=== PATIENT | male | born 1965 | race Caucasian/White ===

== ENCOUNTER 2019-09-15 21:48 | Emergency (ER) | payer OTHER ==
[~2019-09-15] VITALS: Ht 152.4 cm; Wt 97.5 kg
[2019-09-15] MEDS ORDERED: AUGMENTIN 875-125 TABLET PO STA (22:01)
--- NOTE | 2019-09-15 22:07 | NUR ---
[facility] ANIMAL CONTROL CALLED TO BE NOTIFIED. TALKED WITH JOVANNY BLANCO AND VENESSA OCONNELL. STATES WILL CALL BACK WITH MORE INFO.
--- NOTE | 2019-09-15 22:08 | ER.PDOC ---
General Chief Complaint: Requesting Medical Care Stated Complaint: DOG BITE Time seen by MD: 21:55 Source: patient Exam Limitations: no limitations History of Present Illness Initial Comments patient involved in unprovoked attack by 2 rotweiler dogs today; the dogs are known and contained, have had vaccinations and are scheduled to be put down tomorrow Onset: this afternoon Where: home Animal: dog (2 rotweilers) Animal Appearance: appeared well Animal Immunizations: UTD Animal Disposition: Animal Known, Animal Captured, Can Be Observed (are scheduled to be put down tomorrow) Context of Attack: "unprovoked" attack Severity of Injury: bitten Injury Location: lower extremity (both) Review of Systems Constitutional: no symptoms reported Eyes: no symptoms reported Ears: no symptoms reported Nose: no symptoms reported Mouth: no symptoms reported Throat: no symptoms reported Respiratory: no symptoms reported Cardiovascular: no symptoms reported Gastrointestinal: no symptoms reported Skin: see HPI (dog bites left thigh, right knee, right calf) Physical Exam General Appearance: alert, no distress Skin: see diagram Neuro/Vascular/Tendon: no vascular compromise Psych: mood/affect nml HEENT: atraumatic Neck: uninjured Resp/CVS: chest non-tender, breath sounds nml, heart sounds nml, reg. rate & rhythm Abdomen: nml inspection Back: nml inspection Extremities: see diagram 1 - bite wound with hematoma 2 - bite wound 3 - bite wound Results/Orders Results/Orders Orders - TIERRA BENÍTEZ DO Tetanus-Diphtheria Toxoids/Pf (Tenivac S (09/15/19 22:30) Amoxicillin/Potassium Clav (Augmentin 87 (09/15/19 22:01) Xr Femur Lt (09/15/19 22:01) Xr Knee Rt 2v (09/15/19 22:01) Xr Tib/Fib Rt (09/15/19 22:01) Amoxicillin/Potassium Clav (Augmentin 87 (09/15/19 22:22) Vital Signs Date Time Temp Pulse Resp B/P (MAP) Pulse Ox O2 Delivery O2 Flow Rate FiO2 09/15/19 22:20 98.7 80 18 115/84 (94) 96 Room Air 09/15/19 22:10 98.7 80 18 96 09/15/19 22:10 98.7 80 18 Administered Medications Medications (Trade) Dose Ordered Sig/Elbert Route PRN Reason Start Time Stop Time Status Last Admin Dose Admin Amoxicillin/ Clavulanate Potassium (Augmentin 875-125 Tablet) 1 each STAT STAT PO 09/15/19 22:01 09/15/19 22:05 DC 09/15/19 22:27 1 EACH EKG/XRAY/CT/US XRAY Comments: no FB seen; no fx Departure Time of Disposition: 23:09 Disposition: 01 HOME, SELF-CARE Impression: Primary Impression: Dog bite of extremity Additional Impression: Hematoma and contusion Condition: Stable Patient Instructions: Animal Bite, Hematoma Referrals: PCP,UNKNOWN (PCP) PRIMARY CARE PROVIDER Additional Instructions: apply ice to areas of pain/swelling; take antibiotics until all gone; return to ER if you develop any evidence of infection; alternate tylenol and motrin as directed for pain (every 4 hours) Duration or Time Spent with Pa: 20 min Problem Qualifiers TIERRA BENÍTEZ DO Sep 15, 2019 22:08
[2019-09-15 22:10] VITALS: BP 115/84
[2019-09-15 22:20] VITALS: BP 115/84
--- NOTE | 2019-09-15 22:20 | NUR ---
RAD LEN, RAD IN PT ROOM WITH PORTABLE AT THIS TIME.
[2019-09-15] MEDS ORDERED: AUGMENTIN 875-125 TABLET ONE (22:22)
--- NOTE | 2019-09-15 22:22 | NUR ---
ANIMAL CONTROL VENESSA CO CALLED AND STATED WILL SEND DEPUTY OUT TO TAKE REPORT.
[2019-09-15] MEDS ORDERED: TENIVAC SYRINGE IM ONE (22:30)
--- NOTE | 2019-09-15 22:34 | NUR ---
VENESSA HEARN DEPUTY IN PT ROOM TO TAKE REPORT AT THIS TIME.
--- NOTE | 2019-09-15 22:52 | DIREP ---
PROCEDURE:XRAY TIB & FIB 2 VW-RT COMPARISON:None. INDICATIONS:foreign body FINDINGS: BONES:Normal. JOINTS:Normal. SOFT TISSUES:Normal. OTHER:No additional findings. CONCLUSION:No acute findings. Dictated by: Jay Villafana MD on 09/15/2019 at 10:44 PM
--- NOTE | 2019-09-15 22:54 | DIREP ---
PROCEDURE:XRAY KNEE 2 VWS-RT COMPARISON:None. INDICATIONS:foreign body FINDINGS: BONES:Normal. JOINTS:Normal. SOFT TISSUES:Normal. OTHER:No additional findings. CONCLUSION:Limited by poor positioning on the AP view. No definite foreign body. No definite acute fracture. Dictated by: Jay Villafana MD on 09/15/2019 at 10:51 PM
--- NOTE | 2019-09-15 22:55 | DIREP ---
PROCEDURE:XRAY FEMUR 2 VWS-LT COMPARISON:None. INDICATIONS:foreign body FINDINGS: BONES:Normal. JOINTS:Normal. SOFT TISSUES:Normal. OTHER:No additional findings. CONCLUSION:No acute bony findings. Dictated by: Jay Villafana MD on 09/15/2019 at 10:53 PM
== END 2019-09-15 23:26 | disposition home or self-care (01) ==
LOC: ER 21:48
DX: S81.051A Open bite, right knee, initial encounter (principal); S81.851A Open bite, right lower leg, initial encounter; W54.0XXA Bitten by dog, initial encounter; Y93.89 Activity, other specified; Y92.098 Other place in other non-institutional residence as the place of occurrence of the external cause; Y99.8 Other external cause status
CPT/HCPCS: 73552; 73560; 90471; 90714; 99284; 73550-LT; 73590-RT

== ENCOUNTER 2021-01-10 15:45 | Observation (INO) | payer OTHER, MEDICARE ==
[~2021-01-10] VITALS: Ht 152.4 cm; Wt 102.1 kg
--- NOTE | 2021-01-10 15:54 | NUR ---
ARRIVAL PT AMBULATED TO ED 8 C/O 9MM STONE IN RIGHT URETER, WAS SEEN IN [place] AND HAD SCAN, HERE TO F/U ON STONE, UA OBTAINED
[2021-01-10 16:21] VITALS: BP 117/78
--- NOTE | 2021-01-10 16:39 | ER.PDOC ---
General Chief Complaint: RIGHT FLANK PAIN Stated Complaint: KIDNEY STONE Time seen by MD: 16:37 Source: patient Exam Limitations: no limitations History of Present Illness Initial Comments Right flank pain for 1 week. Patient was seen in an ER in [place] and he has a 9 mm ureteral calculus on the right side. He was advised admission but he refused and came here. Timing/Duration: 1 week Severity/Quality: moderate Radiation: RLQ Associated Symptoms: denies symptoms Exacerbated by: nothing Relieved By: nothing Allergies: Coded Allergies: No Known Allergies (Unverified , 01/10/21) Vital Signs First Vital Signs Date Time Temp Pulse Resp B/P (MAP) Pulse Ox O2 Delivery O2 Flow Rate FiO2 01/10/21 16:21 98.7 75 18 117/78 (91) 96 Room Air Last Vital Signs Date Time Temp Pulse Resp B/P (MAP) Pulse Ox O2 Delivery O2 Flow Rate FiO2 01/10/21 18:16 98.7 61 18 117/78 (91) 91 Room Air Past Medical History Medical History: cancer Surgical History: cancer surgery, knee, tonsillectomy Family History Significant Family History: no pertinent family hx Social History Alcohol Use: none Drug Use: none Constitutional: no symptoms reported EENTM: no symptoms reported Respiratory: no symptoms reported Cardiovascular: no symptoms reported Gastrointestinal: see HPI Genitourinary: see HPI All Other Systems: Reviewed and Negative Physical Exam General Appearance: No Apparent Distress, WD/WN Neck: Non-Tender, Full Range of Motion, Supple, Normal Inspection Respiratory: chest non-tender, lungs clear, normal breath sounds, no respiratory distress, no accessory muscle use Cardiovascular: Normal Peripheral Pulses, Regular Rate, Rhythm, No Edema, No Gallop, No JVD, No Murmur Gastrointestinal: Normal Bowel Sounds, Non Tender, Soft, Other (obese) Back: CVA Tenderness (R) Extremities: Normal Range of Motion, Non-Tender, Normal Inspection, No Pedal Edema, No Calf Tenderness, Normal Capillary Refill, Pelvis Stable Neurologic/Psychiatric: christmas tree grader II-XII NML as Tested, No Motor/Sensory Deficits, Alert, Normal Mood/Affect, Oriented x 3 Skin: Normal Color, Warm/Dry Lymphatic: No Adenopathy Results/Orders Results/Orders Orders - CATHIE VALLEJO MD Cbc With Auto Diff (01/10/21 16:35) Comprehensive Metabolic Panel (01/10/21 16:35) PT (01/10/21 16:35) Partial Thromboplastin Time. (01/10/21 16:35) Urinalysis (01/10/21 16:35) Ct Abd/Pelvis Wo Iv Contrast (01/10/21 16:35) Vital Signs Date Time Temp Pulse Resp B/P (MAP) Pulse Ox O2 Delivery O2 Flow Rate FiO2 01/10/21 18:16 98.7 61 18 117/78 (91) 91 Room Air 01/10/21 17:08 98.7 69 18 117/78 (91) 95 Room Air 01/10/21 16:21 98.7 75 18 01/10/21 16:21 98.7 75 18 96 01/10/21 16:21 98.7 75 18 117/78 (91) 96 Room Air Laboratory Tests Test 01/10/21 16:41 White Blood Count 5.9 10^3/uL (4.5-11.0) Red Blood Count 4.38 10^6/uL (4.50-5.90) L Hemoglobin 13.1 g/dL (13.9-16.3) L Hematocrit 39.5 % (37.0-53.0) Mean Corpuscular Volume 90.2 fL (78-100) Mean Corpuscular Hemoglobin 29.9 pg (26-34) Mean Corpuscular Hemoglobin Concent 33.2 g/dL (33-36.5) Red Cell Distribution Width 14.4 % (11.5-14.5) Platelet Count 193 10^3/uL (150-400) Mean Platelet Volume 10.1 fL (7.8-11.0) Neutrophils (%) (Auto) 64.7 % (41.0-85.0) Lymphocytes (%) (Auto) 25.3 % (24.0-44.0) Monocytes (%) (Auto) 5.4 % (5.0-12.0) Neutrophils # (Auto) 3.8 10^3/uL (1.8-7.7) Lymphocytes # (Auto) 1.49 10^3/uL1 (1.0-4.8) Monocytes # (Auto) 0.3 10^3/uL (0.3-0.8) Absolute Immature Granulocyte (auto 0.03 10^3 u/L (0-2) Absolute Eosinophils (auto) 0.2 10^3/uL (0.0-0.2) Immature Granulocytes % 0.50 % (0.00-0.50) Eosinophils % 3.1 % (0.0-5.0) Basophils % 1.0 % (0.0-0.2) H Basophils # 0.1 10^3/uL (0.0-0.1) Prothrombin Time 11.6 SEC (9.6-12.0) Prothrombin Time INR (Non-Therap) 1.1 Activated Partial Thromboplast Time 25.6 SEC (24.67-30.72) Urine Collection Type RANDOM Urine Color RED Urine Appearance CLOUDY Urine Bilirubin NEGATIVE (NEGATIVE) Urine Ketones NEGATIVE (NEGATIVE) Urine Specific [place] 1.020 (1.005-1.030) Urine pH 5.5 (4.5-8.0) Urine Protein 100 mg/dL (NEGATIVE) H Urine Urobilinogen 0.2 E.U./dL (0.2) Urine Nitrate NEGATIVE (NEGATIVE) Urine Leukocyte Esterase NEGATIVE (NEGATIVE) Urine Glucose (Auto)(UA) NEGATIVE (NEGATIVE) Urine Blood LARGE (NEGATIVE) H Urine RBC TNTC RBC/HPF (NONE SEEN) H Urine WBC 0-2 WBC/HPF (0-2) Urine Squamous Epithelial Cells FEW #/HPF (FEW) Urine Bacteria NONE SEEN (NONE SEEN) Sodium Level 138 mmol/L (132-145) Potassium Level 3.2 mmol/L (3.6-5.2) L Chloride Level 100.0 mmol/L (96-109) Carbon Dioxide Level 29.8 mmol/L (20.0-32) Anion Gap 11.4 Blood Urea Nitrogen 18 mg/dL (7-18) Creatinine 1.89 mg/dL (0.59-1.40) H Estimated GFR () 44.9 (>/=60) Est GFR (CKD-EPI)(Non-Afr [place]) 37.1 (>/=60) BUN/Creatinine Ratio 9.0 Glucose Level 168 mg/dL (70-110) H Calcium Level 8.5 mg/dL (8.4-10.5) Total Bilirubin 0.5 mg/dL (0.2-1.0) Aspartate Amino Transferase (AST) 54 U/L (0-35) H Alanine Aminotransferase (ALT) 47 U/L (12-78) Alkaline Phosphatase 53 U/L (50-136) Total Protein 7.2 g/dL (6.4-8.2) Albumin 4.0 g/dL (3.4-5.0) Globulin 3.2 Albumin/Globulin Ratio 1.[address] abdomen/pelvis: Moderate hepatic steatosis. 2. 9 x 7 mm nonobstructing calculus in the right distal ureter. 3. Mild sigmoid diverticulosis. 4. Small pericardial effusion. ER DEPART Departure Time of Disposition: 18:30 Disposition: 01 HOME / SELF CARE / HOMELESS Impression: Primary Impression: Ureteral calculus, right Additional Impression: ASHLEY (acute kidney injury) Condition: Stable Referrals: PCP,UNKNOWN (PCP) PRIMARY CARE PROVIDER Comments Admitted to Dr. Hernández, spoke with Dr. Gaspar who will consult Duration or Time Spent with Pa: 60 min Problem Qualifiers CATHIE VALLEJO MD Jan 10, 2021 16:39
[2021-01-10 16:46] LABS: BILIRUBIN,URINE NEGATIVE (NEGATIVE); UA COLOR RED; UROBILINOGEN,URINE 0.2 E.U./dL (0.2)
[2021-01-10 16:47] LABS: BASOPHIL # 0.1 10^3/uL (0.0-0.1); EOSINOPHIL # 0.2 10^3/uL (0.0-0.2); EOSINOPHIL % 3.1 % (0.0-5.0); LYMPHOCYTES # 1.49 10^3/uL1 (1.0-4.8); LYMPHOCYTES % 25.3 % (24.0-44.0); MEAN CORP HGB 29.9 pg (26-34); MONOCYTES # 0.3 10^3/uL (0.3-0.8); MONOCYTES % 5.4 % (5.0-12.0); NEUTROPHIL # 3.8 10^3/uL (1.8-7.7); NEUTROPHILS % 64.7 % (41.0-85.0); PLATELET COUNT 193 10^3/uL (150-400); RED CELL DISTRIBUTION WIDTH 14.4 % (11.5-14.5)
[2021-01-10 17:02] LABS: CALCIUM 8.5 mg/dL (8.4-10.5); CARBON DIOXIDE 29.8 mmol/L (20.0-32)
[2021-01-10 17:08] VITALS: BP 117/78
--- NOTE | 2021-01-10 17:35 | DIREP ---
PROCEDURE:CT ABDOMEN/PELVIS W/O CONTRAST COMPARISON:None. INDICATIONS:Right flank pain TECHNIQUE:Axial images were created through the abdomen and pelvis without intravenous contrast material. No oral contrast was administered. Sagittal and coronal reconstructions were performed from source images. FINDINGS: LUNG BASES:Normal. No visible pulmonary or pleural disease. Small pericardial effusion. LIVER:Diffusely diminished hepatic attenuation consistent with hepatic steatosis. There is focal fatty sparing adjacent to the gallbladder. BILIARY:Normal. No visible dilatation or calcification. PANCREAS:Normal. No lesion, fluid collection, ductal dilatation, or atrophy. SPLEEN:Normal. No enlargement or focal lesion. ADRENALS:Normal. No mass or enlargement. URINARY TRACT:9 x 7 mm nonobstructing calculus in the right distal ureter on image 79 series 2. No hydronephrosis. No additional renal or ureteral calculi. No focal lesions or hydronephrosis. AORTA/VASCULAR:Normal. No aneurysm. RETROPERITONEUM:Normal. No mass or adenopathy. BOWEL/MESENTERY:There is mild colonic diverticulosis without evidence for diverticulitis. There is no intestinal obstruction, free fluid, free air or mesenteric inflammatory changes. Normal appendix. ABDOMINAL WALL:Evidence of prior periumbilical hernia repair with abdominal wall mesh. PELVIC ORGANS:Normal. No visible mass. Pelvic organs appropriate for patient age. BONES:Normal for age. No bony lesion or acute fracture. OTHER:Negative. CONCLUSION: 1. Moderate hepatic steatosis. 2. 9 x 7 mm nonobstructing calculus in the right distal ureter. 3. Mild sigmoid diverticulosis. 4. Small pericardial effusion. Dictated by: Tomi Feliciano MD on 01/10/2021 at 05:14 PM
--- NOTE | 2021-01-10 18:05 | NUR ---
KELLE MORGANA ON THE PHONE WITH DOCTOR NINA AT THIS TIME.
[2021-01-10 18:16] VITALS: BP 117/78
[2021-01-10] MEDS ORDERED: HNS 1000ML/KCL 20MEQ 1,000 ML IV STA (18:31)
[2021-01-10] MEDS ORDERED: ROCEPHIN 1,000 MG in NS 100ML 100 ML IV STA (18:31)
[2021-01-10] MEDS ORDERED: HNS 1000ML/KCL 20MEQ 1,000 ML ONE (18:48)
[2021-01-10] MEDS ORDERED: ROCEPHIN ONE (18:48)
--- NOTE | 2021-01-10 18:57 | NUR ---
IV START 20G RIGHT HAND
[2021-01-10] MEDS ORDERED: DEXTROSE 50%-WATER SYRINGE IV PRN (19:00)
[2021-01-10] MEDS ORDERED: D5W 1000ML 1,000 ML PRN (19:00)
[2021-01-10] MEDS ORDERED: MORPHINE SULFATE IV PRN (19:00)
[2021-01-10] MEDS ORDERED: TYLENOL PO PRN (19:00)
--- NOTE | 2021-01-10 19:13 | PCM.HP ---
History of Present Illness Reason for Visit: Right flank pain History of Present Illness 55-year-old male with history of hypertension, diabetes, kidney stones, among othersPresented to the emergency room withRight flank pain for 1 week. Patient was seen in an ER in [place] and he has a 9 mm ureteral calculus on the right side. He was advised admission but he refused and came here. Work-up in the emergency room including imaging studies patient was found to have 9 mm right distal ureter stone. Patient also was found to have elevated creatinine 1.89.? Acute kidney injury. Denies fever chills nausea or vomiting. ED physician consulted with urologist who advised admit the patient for possible procedure in a.m. Past Medical History Cardiac: HTN, Hyperlipidemia Renal/: Other (Kidney stones) Endocrine: Diabetes Past Surgical History: No pertinent hx Past Social History Smoke: No Alcohol: none Review of Systems Constitutional: No: Fever Eyes: No: Pain, Vision change ENT: No: Ear pain, Ear discharge Respiratory: No: Cough, Dry, Shortness of breath Cardiovascular: No: Chest Pain, Palpitations, Orthopnea Gastrointestinal: No: Nausea, Vomiting Genitourinary: Other (Right flank pain) Musculoskeletal: No: neck pain, shoulder pain Skin: No: Jaundice Neurological: No: Weakness, Numbness Allergies: Coded Allergies: No Known Allergies (Unverified , 01/10/21) Exam Vital Signs Vital Signs Date Time Temp Pulse Resp B/P (MAP) Pulse Ox O2 Delivery O2 Flow Rate FiO2 01/10/21 18:16 98.7 61 18 117/78 (91) 91 Room Air General Appearance: Alert, Oriented X3 HEENT: Atraumatic, PERRLA Respiratory: Clear to auscultation, Normal air movement Cardiovascular: Normal S1, Normal S2 Abdominal: Normal bowel sounds, Soft, No tenderness Extremities: No clubbing, No cyanosis, No edema Skin: No rash, No breakdown Neuro: Normal gait, Normal speech Psych/Mental Status: Mental status NL, Mood NL Assessment/Plan Assessment/Plan Problems: (1) Ureteral calculus, right Status: Acute ICD Code: N20.1 - Calculus of ureter SNOMED: 89413955 (2) ASHLEY (acute kidney injury) Status: Acute ICD Code: N17.9 - Acute kidney failure, unspecified SNOMED: 61679255, 0251508 (3) Diabetes mellitus, type II ICD Code: E11.9 - Type 2 diabetes mellitus without complications SNOMED: 01568675 (4) Hypertension ICD Code: I10 - Essential (primary) hypertension SNOMED: 48223123 (5) Hyperlipidemia ICD Code: E78.5 - Hyperlipidemia, unspecified SNOMED: 29450836 Plan 55-year-old male with history of hypertension, diabetes, kidney stones, among othersPresented to the emergency room withRight flank pain for 1 week. Patient was seen in an ER in [place] and he has a 9 mm ureteral calculus on the right side. He was advised admission but he refused and came here. Work-up in the emergency room including imaging studies patient was found to have 9 mm right distal ureter stone. Patient also was found to have elevated creatinine 1.89.? Acute kidney injury. Denies fever chills nausea or vomiting. ED physician consulted with urologist who advised admit the patient for possible procedure in a.m. Plan Admit Urologist consulted for evaluation and further management N.p.o. after midnight IV fluids Pain management with close monitoring of vital signs and pulse ox SSI Reviewed continue home meds GI and DVT prophylaxis as appropriate Expect length of stay 1 midnight if patient stable and cleared by urologist CLEMENTINA TORRES MD Jan 10, 2021 19:13
[2021-01-10] MEDS ORDERED: KLOR-CON 10 PO SCH (19:30)
[2021-01-10] MEDS ORDERED: ROCEPHIN 1,000 MG in NS 100ML 100 ML IV SCH (19:30)
[2021-01-10 19:49] VITALS: BP 102/62
[2021-01-10] MEDS: NS 1000ML 1,000 ML IV SCH (20:48)
[2021-01-10] MEDS ORDERED: HUMALOG SQ SCH (21:00)
[2021-01-10 21:05] VITALS: BP 127/69
[2021-01-10 22:24] VITALS: BP 118/57
[2021-01-11] VITALS (17 sets, daily range): BP systolic 101–159; BP diastolic 47–101
[2021-01-11] MEDS ORDERED: NS 1000ML 1,000 ML ONE ×2 (03:32→08:07)
[2021-01-11] MEDS: NS 1000ML 1,000 ML IV SCH (03:35)
[2021-01-11 04:40] LABS: BASOPHIL # 0.1 10^3/uL (0.0-0.1); BASOPHIL % 1.3 % (0.0-0.2); EOSINOPHIL # 0.2 10^3/uL (0.0-0.2); EOSINOPHIL % 3.9 % (0.0-5.0); LYMPHOCYTES # 1.23 10^3/uL1 (1.0-4.8); LYMPHOCYTES % 22.8 % (24.0-44.0); MEAN CORP HGB 30.5 pg (26-34); MONOCYTES # 0.3 10^3/uL (0.3-0.8); MONOCYTES % 5.6 % (5.0-12.0); NEUTROPHIL # 3.6 10^3/uL (1.8-7.7); NEUTROPHILS % 66.2 % (41.0-85.0); PLATELET COUNT 161 10^3/uL (150-400); RED CELL DISTRIBUTION WIDTH 14.5 % (11.5-14.5)
--- NOTE | 2021-01-11 07:00 | NUR ---
Kwadwo telles in [facility] - 01/11/21 at 0700 by JOANIE Resting comfortsably.
--- NOTE | 2021-01-11 07:00 | NUR ---
Resting comfortably. No complaints offered. Remains NPO status for surgery this am. VSS. IV right hand without s/s of infiltration. Pending transfer to the floor vs. surgery.
[2021-01-11] MEDS ORDERED: SODIUM CHLORIDE IRR BOTTLE IR ONE (07:26)
[2021-01-11] MEDS ORDERED: NS 3000ML IRR IR ONE (07:26)
[2021-01-11] MEDS ORDERED: ROCURONIUM BROMIDE IV ONE (07:34)
[2021-01-11] MEDS ORDERED: DECADRON ONE (07:34)
[2021-01-11] MEDS ORDERED: LIDOCAINE 2% VIAL ONE (07:34)
[2021-01-11] MEDS ORDERED: TORADOL ONE (07:34)
[2021-01-11] MEDS ORDERED: ZOFRAN ONE (07:34)
[2021-01-11] MEDS ORDERED: SUBLIMAZE ONE (07:35)
[2021-01-11] MEDS ORDERED: QUELICIN ONE (07:35)
[2021-01-11] MEDS ORDERED: DIPRIVAN IV ONE (07:35)
[2021-01-11] MEDS ORDERED: LEVAQUIN 100 ML IV ONE (08:01)
[2021-01-11] MEDS ORDERED: LACTATED RINGERS 1,000 ML ONE (08:01)
[2021-01-11] MEDS ORDERED: TRAM50TA PO (09:05)
[2021-01-11] MEDS ORDERED: CALC1CAP7 PO (09:05)
[2021-01-11] MEDS ORDERED: DOXE10CA PO (09:05)
[2021-01-11] MEDS ORDERED: METF500T17 PO (09:05)
[2021-01-11] MEDS ORDERED: NIAC500C8 PO (09:05)
[2021-01-11] MEDS ORDERED: ALBU8.5H7 IH (09:05)
[2021-01-11] MEDS ORDERED: BUSP5TAB2 PO (09:05)
[2021-01-11] MEDS ORDERED: HYDR25TA9 PO (09:05)
[2021-01-11] MEDS ORDERED: PARO40TA3 PO (09:05)
[2021-01-11] MEDS ORDERED: PROP60CA PO (09:05)
[2021-01-11] MEDS ORDERED: ROSU40TA PO (09:05)
[2021-01-11] MEDS ORDERED: METH-621 PO (09:05)
[2021-01-11] MEDS ORDERED: LEVO137T4 PO (09:05)
[2021-01-11] MEDS ORDERED: GABA800T5 PO (09:05)
[2021-01-11] MEDS ORDERED: LISI40TA10 PO (09:05)
[2021-01-11] MEDS ORDERED: AMLO-170 PO (09:05)
[2021-01-11] MEDS ORDERED: POTA20TA14 PO (09:05)
[2021-01-11] MEDS ORDERED: ALLO100T PO (09:05)
[2021-01-11 09:08] LABS: CARBON DIOXIDE 25.5 mmol/L (20.0-32)
[2021-01-11] MEDS ORDERED: VENTOLIN IH ONE (09:43)
[2021-01-11] MEDS ORDERED: LACTATED RINGERS 1,000 ML IV SCH (10:00)
--- NOTE | 2021-01-11 10:14 | OPH ---
DATE OF SURGERY: 01/11/2021 DICTATOR NAME: Husam Gaspar MD PREOPERATIVE DIAGNOSIS: Large calculus, right distal ureter. FINAL DIAGNOSES: Large calculus, right distal ureter. PROCEDURE PERFORMED: Cystoscopy, retrograde and attempted ureteroscopy with attempted ureteral stent insertion. DESCRIPTION OF PROCEDURE: The patient was brought to the cystoscopy room, was put in supine position on the cystoscopy table. After the patient was given adequate and LMA general anesthesia, the patient was placed in the lithotomy position. The genitalia was then prepped and draped aseptically in the usual manner. First, a 23-[place] cystoscope was inserted per urethra up to the bladder. With the use of the right angle lens, the bladder was visualized. There was a lot of congestion noted in the trigone and also in the bladder wall. There is no tumor, no calculi, and no ulcerations seen. A 7-[place] ureteral catheter was then inserted at the right ureteral orifice and injected with Omnipaque dye and it showed a large calculus in the right distal ureter with some hydroureter. After this was done, the ureteral stent was removed and then a Glidewire with a 6-[place] ureteral stent was then inserted into the bladder and the Glidewire was then tried to insert through the right ureteral orifice; however, because of the stone was completely obstructed, several attempts were done to manipulate around the stone, but the Glidewire would not go through. So at this juncture, I decided to do a possible ureteroscopy. The cystoscope was removed and a 7-[place] Island[place] semirigid ureteroscope was inserted per urethra up to the bladder and was inserted to the right ureteral orifice and the Glidewire was then inserted, but it completely blocked and the Glidewire with a stent would not pass through the stone in the distal right ureter, which is completely impacted and obstructed. So at this time, the ureteroscope was removed. The cystoscope was reinserted in the bladder and the bladder was emptied with fluid. Procedure was terminated. The instrument was removed. So the patient was then awakened, was transferred to the recovery room in stable condition. I will discuss this with the patient and also with the primary hospitalist and I suggested that he should be transferred to the bigger center, may be in [place] for them to be referred to an invasive radiologist to do a transcutaneous nephrostomy with insertion of a stent from the kidney down to the bladder. Husam Gaspar MD DR: REECE TID: [id number] RECEIPT: [id number]
--- NOTE | 2021-01-11 10:30 | DIREP ---
PROCEDURE:XRAY UROGRAPHY RETROGRADE COMPARISON:None. INDICATIONS:RT RENAL CALCULI,8 IMAGES,205.3 SEC FLUORO,123.02 mGy, 10cc OMNI 240 USED FINDINGS: Intraoperative fluoroscopy was provided for the ordering clinician by the Radiology Department for retrograde urogram. Eight images submitted for interpretation common demonstrating retrograde opacification of the right ureter.. 205.3 seconds fluoroscopy time utilized. CONCLUSION: Intraoperative fluoroscopy provided for the ordering clinician by the Radiology Department as detailed above. Dictated by: Víctor Morris DO on 01/11/2021 at 10:27 AM
--- NOTE | 2021-01-11 11:03 | NUR ---
STATUS PATIENT ENTERED INTO [facility] ALL PARTICIPATING LOCATIONS [place], [place], [facility], [place], AND [facility] DECLINED DUE TO FULL CAPACITY.
--- NOTE | 2021-01-11 11:15 | NUR ---
[facility] CALLED TO INQUIRE FOR TRANSFER, PATIENT DECLINED DUE TO FULL CAPACITY
--- NOTE | 2021-01-11 13:57 | NUR ---
[facility] ACCEPTED PT, DR MCRAE NOTIFIED. BETTY DAVIS AT [facility] TRANSFER CENTER REQUESTS THAT WE OBTAIN PRE AUTHORIZATION FOR PATIENT TO BE TRANSFERRED TO [facility]. ALISSA DAVISTECHNOLOGY RECRUITER NOTIFIED.
--- NOTE | 2021-01-11 14:24 | PRM.PN ---
Subjective Subjective Date: Jan 11, 2021 Time: 15:00 Subjective 55-year-old male with history of hypertension, diabetes, kidney stones, among othersPresented to the emergency room withRight flank pain for 1 week. Patient was seen in an ER in [place] and he has a 9 mm ureteral calculus on the right side. He was advised admission but he refused and came here. Work-up in the emergency room including imaging studies patient was found to have 9 mm right distal ureter stone. Patient also was found to have elevated creatinine 1.89.? Acute kidney injury. Urologist was consulted. Patient had cystoscopy today, urologist was unable to place stent. Urologist recommended transfer to [facility] where interventional radiologist can place a nephrostomy tube, percutaneously and a stent between the kidney and the bladder. Arrangements to transfer the patient to [facility] was accepted. Spoke with the hospitalist Dr. Lyons Who accepted the patient.Patient will be transferred in stable condition. Review of Systems Constitutional: No: Fever Eyes: No: Pain, Vision change ENT: No: Ear pain, Ear discharge Respiratory: No: Cough, Dry, Shortness of breath Cardiovascular: No: Chest Pain, Palpitations, Orthopnea Gastrointestinal: No: Nausea, Vomiting Genitourinary: Other (Right flank pain) Musculoskeletal: No: neck pain, shoulder pain Skin: No: Jaundice Neurological: No: Weakness, Numbness Allergies: Coded Allergies: No Known Allergies (Unverified , 01/10/21) Scheduled Allopurinol (Allopurinol), 1 TAB PO DAILY, (Reported) Amlodipine Besylate (Amlodipine Besylate), 1 TAB PO DAILY, (Reported) Buspirone Hcl (Buspirone Hcl), 1 TAB PO TID, (Reported) Calcium Carbonate/Vitamin D3 (Calcium 600 + Vit D 400 Softgl), 1 CAP PO BID, (Reported) Doxepin Hcl (Doxepin Hcl), 1 CAP PO HS, (Reported) Gabapentin (Gabapentin), 1 TAB PO TID, (Reported) Hydrochlorothiazide (Hydrochlorothiazide), 1 TAB PO DAILY, (Reported) Levothyroxine Sodium (Levothyroxine Sodium), 1 TAB PO DAILY, (Reported) Lisinopril (Lisinopril), 1 TAB PO DAILY, (Reported) Metformin Hcl (Metformin Hcl), 1 TAB PO BID, (Reported) Methocarbamol (Methocarbamol), 500 MG PO BID, (Reported) Niacin (Inositol Niacinate) (Niacin 500 Mg Capsule), 3 CAP PO BID, (Reported) Paroxetine Hcl (Paroxetine Hcl), 1 TAB PO DAILY, (Reported) Potassium Chloride (Potassium Chloride), 1 TAB PO BID, (Reported) Propranolol Hcl (Inderal La), 1 CAP PO QD, (Reported) Rosuvastatin 40MG (Crestor 40MG), 1 TAB PO DAILY, (Reported) Tramadol Hcl (Tramadol Hcl), 1 TAB PO TID, (Reported) Scheduled PRN Albuterol Sulfate (Proair Hfa), 8.5 GM IH Q4 PRN for SHORTNESS OF BREATH, (Repo rted) Objective Vitals and I/O Vital Sign - Last 24 Hours 01/10/21 01/10/21 01/10/21 01/10/21 16:21 16:21 16:21 17:08 Temp 98.7 98.7 98.7 98.7 Pulse 75 75 75 69 Resp 18 18 18 18 B/P (MAP) 117/78 (91) 117/78 (91) Pulse Ox 96 96 95 O2 Delivery Room Air Room Air 01/10/21 01/10/21 01/10/21 01/10/21 18:16 19:49 21:05 22:24 Temp 98.7 98.7 98.7 98.7 Pulse 61 59 74 60 Resp 18 18 18 18 B/P (MAP) 117/78 (91) 102/62 (75) 127/69 (88) 118/57 (77) Pulse Ox 91 94 94 93 O2 Delivery Room Air Room Air Room Air Room Air 01/11/21 01/11/21 01/11/21 01/11/21 01:20 03:28 08:09 08:09 Temp 98.7 98.7 97.2 Pulse 60 67 61 Resp 16 16 16 B/P (MAP) 119/84 (96) 116/84 (95) 107/74 (85) Pulse Ox 93 94 94 O2 Delivery Room Air Room Air Room Air Room Air 01/11/21 01/11/21 01/11/21 01/11/21 09:37 09:37 09:48 09:57 Temp 96.8 Pulse 94 94 96 Resp 16 16 16 B/P (MAP) 159/86 (110) 133/87 (102) 119/98 (105) Pulse Ox 97 97 98 O2 Delivery Nasal Canula Nasal Canula Room Air O2 Flow Rate 3 3 3 01/11/21 01/11/21 01/11/21 01/11/21 10:00 10:07 10:15 10:30 Temp 97.1 Pulse 93 95 91 Resp 16 16 16 B/P (MAP) 130/101 (111) 136/84 (101) 112/72 (85) Pulse Ox 95 93 94 O2 Delivery Room Air Room Air Room Air Room Air 01/11/21 01/11/21 01/11/21 01/11/21 10:45 11:00 11:15 11:30 Pulse 87 91 92 82 Resp 16 16 16 16 B/P (MAP) 117/74 (88) 131/90 (104) 109/75 (86) 117/87 (97) Pulse Ox 94 92 92 94 O2 Delivery Room Air Room Air Room Air Room Air 01/11/21 01/11/21 01/11/21 11:45 12:00 13:00 Pulse 87 83 88 Resp 16 16 16 B/P (MAP) 119/77 (91) 113/47 (69) 101/76 (84) Pulse Ox 92 93 94 O2 Delivery Room Air Room Air Room Air General: Alert, Oriented X3 HEENT: Atraumatic, PERRLA Lungs: Clear to auscultation, Normal air movement Heart: Normal S1, Normal S2 Abdomen: Normal bowel sounds, Soft, No tenderness Extremities: No clubbing, No cyanosis, No edema Neuro: Normal gait, Normal speech Psych/Mental Status: Mental status NL, Mood NL All Results(Lab/Rad) Laboratory Tests Test 01/10/21 16:41 01/10/21 21:03 01/11/21 04:36 01/11/21 11:32 White Blood Count 5.9 10^3/uL 5.4 10^3/uL Red Blood Count 4.38 10^6/uL 4.46 10^6/uL Hemoglobin 13.1 g/dL 13.6 g/dL Hematocrit 39.5 % 40.1 % Mean Corpuscular Volume 90.2 fL 89.9 fL Mean Corpuscular Hemoglobin 29.9 pg 30.5 pg Mean Corpuscular Hemoglobin Concent 33.2 g/dL 33.9 g/dL Red Cell Distribution Width 14.4 % 14.5 % Platelet Count 193 10^3/uL 161 10^3/uL Mean Platelet Volume 10.1 fL 10.5 fL Neutrophils (%) (Auto) 64.7 % 66.2 % Lymphocytes (%) (Auto) 25.3 % 22.8 % Monocytes (%) (Auto) 5.4 % 5.6 % Neutrophils # (Auto) 3.8 10^3/uL 3.6 10^3/uL Lymphocytes # (Auto) 1.49 10^3/uL1 1.23 10^3/uL1 Monocytes # (Auto) 0.3 10^3/uL 0.3 10^3/uL Absolute Immature Granulocyte (auto 0.03 10^3 u/L 0.01 10^3 u/L Absolute Eosinophils (auto) 0.2 10^3/uL 0.2 10^3/uL Immature Granulocytes % 0.50 % 0.20 % Eosinophils % 3.1 % 3.9 % Basophils % 1.0 % 1.3 % Basophils # 0.1 10^3/uL 0.1 10^3/uL Prothrombin Time 11.6 SEC Prothrombin Time INR (Non-Therap) 1.1 Activated Partial Thromboplast Time 25.6 SEC Urine Collection Type RANDOM Urine Color RED Urine Appearance CLOUDY Urine Bilirubin NEGATIVE Urine Ketones NEGATIVE Urine Specific [place] 1.020 Urine pH 5.5 Urine Protein 100 mg/dL Urine Urobilinogen 0.2 E.U./dL Urine Nitrate NEGATIVE Urine Leukocyte Esterase NEGATIVE Urine Glucose (Auto)(UA) NEGATIVE Urine Blood LARGE Urine RBC TNTC RBC/HPF Urine WBC 0-2 WBC/HPF Urine Squamous Epithelial Cells FEW #/HPF Urine Bacteria NONE SEEN Sodium Level 138 mmol/L 139 mmol/L Potassium Level 3.2 mmol/L 3.8 mmol/L Chloride Level 100.0 mmol/L 102.0 mmol/L Carbon Dioxide Level 29.8 mmol/L 25.5 mmol/L Anion Gap 11.4 15.3 Blood Urea Nitrogen 18 mg/dL 18 mg/dL Creatinine 1.89 mg/dL 1.73 mg/dL Estimated GFR () 44.9 49.7 Est GFR (CKD-EPI)(Non-Afr Turkish) 37.1 41.1 BUN/Creatinine Ratio 9.0 10.0 Glucose Level 168 mg/dL 167 mg/dL Calcium Level 8.5 mg/dL 8.0 mg/dL Total Bilirubin 0.5 mg/dL Aspartate Amino Transf (AST/SGOT) 54 U/L Alanine Aminotransferase (ALT/SGPT) 47 U/L Alkaline Phosphatase 53 U/L Total Protein 7.2 g/dL Albumin 4.0 g/dL Globulin 3.2 Albumin/Globulin Ratio 1.250 Bedside Glucose 125 SARS-CoV-2 Antigen (Rapid) NEGATIVE Current Medications Medications (Trade) Dose Ordered Sig/Elbert Route PRN Reason Start Time Stop Time Status Last Admin Dose Admin Potassium Chloride/Sodium Chloride 1,000 ml @ 100 mls/hr Q10H STAT IV 01/10/21 18:31 01/11/21 04:30 DC 01/10/21 18:55 Ceftriaxone Sodium 1000 mg/ Sodium Chloride 100 ml @ 100 mls/hr STAT STAT IV 01/10/21 18:31 01/10/21 19:30 DC 01/10/21 18:50 Potassium Chloride/Sodium Chloride 1,000 ml @ ud STK-MED ONCE .ROUTE 01/10/21 18:48 01/10/21 18:48 DC Ceftriaxone Sodium (Rocephin) 1,000 mg STK-MED ONCE .ROUTE 01/10/21 18:48 01/10/21 18:48 DC Acetaminophen (Tylenol) 325 mg Q4H PRN PO PAIN 1 - 3 01/10/21 19:00 02/09/21 18:59 Morphine Sulfate (Morphine Sulfate) 2 mg Q4H PRN IV pain 01/10/21 19:00 02/09/21 18:59 Insulin Human Lispro (Humalog) 0-140 0 Units 141-200... ACHS SQ 01/10/21 21:00 02/09/21 20:59 Dextrose 1,000 ml @ 100 mls/hr Q10H PRN IV hypoglycemia 01/10/21 19:00 02/09/21 18:59 Dextrose (Dextrose 50%-Water Syringe) 25 ml PRN PRN IV hypoglycemia 01/10/21 19:00 02/09/21 18:59 Potassium Chloride (Klor-Con 10) 20 meq STAT PO 01/10/21 19:30 01/10/21 23:01 DC 01/10/21 19:34 Sodium Chloride 1,000 ml @ 125 mls/hr Q8H IV 01/10/21 19:30 02/09/21 19:29 01/11/21 03:35 Ceftriaxone Sodium 1000 mg/ Sodium Chloride 100 ml @ 100 mls/hr Q24HRS IV 01/10/21 19:30 02/09/21 19:29 Sodium Chloride 1,000 ml @ ud STK-MED ONCE .ROUTE 01/11/21 03:32 01/11/21 03:33 DC Sodium Chloride (Sodium Chloride Irr Bottle) 1,000 ml STK-MED ONCE IR 01/11/21 07:26 01/11/21 07:26 DC Sodium Chloride (NS 3000ml Irr) 3,000 ml STK-MED ONCE IR 01/11/21 07:26 01/11/21 07:26 DC Lidocaine HCl (Lidocaine 2% Vial) 500 mg STK-MED ONCE .ROUTE 01/11/21 07:34 01/11/21 07:34 DC Ketorolac Tromethamine (Toradol) 30 mg STK-MED ONCE .ROUTE 01/11/21 07:34 01/11/21 07:34 DC Ondansetron HCl (Zofran) 4 mg STK-MED ONCE .ROUTE 01/11/21 07:34 01/11/21 07:35 DC Rocuronium [place] (Rocuronium [place]) 50 mg STK-MED ONCE IV 01/11/21 07:34 01/11/21 07:35 DC Succinylcholine Chloride (Quelicin) 200 mg STK-MED ONCE .ROUTE 01/11/21 07:35 01/11/21 07:35 DC Fentanyl Citrate (Sublimaze) 50 mcg STK-MED ONCE .ROUTE 01/11/21 07:35 01/11/21 07:35 DC Propofol (Diprivan) 200 mg STK-MED ONCE IV 01/11/21 07:35 01/11/21 07:36 DC Levofloxacin/ Dextrose 100 ml @ ud STK-MED ONCE IV 01/11/21 08:01 01/11/21 08:02 DC Sodium Chloride 1,000 ml @ ud STK-MED ONCE .ROUTE 01/11/21 08:07 01/11/21 08:07 DC Albuterol Sulfate (Ventolin) 2.5 mg STK-MED ONCE IH 01/11/21 09:43 01/11/21 09:44 DC Assessment/Plan Assessment/Plan Problems: (1) Ureteral calculus, right Status: Acute ICD Code: N20.1 - Calculus of ureter SNOMED: 90649977 (2) ASHLEY (acute kidney injury) Status: Acute ICD Code: N17.9 - Acute kidney failure, unspecified SNOMED: 21022202, 9803301 (3) Hypertension ICD Code: I10 - Essential (primary) hypertension SNOMED: 28169598 (4) Hyperlipidemia ICD Code: E78.5 - Hyperlipidemia, unspecified SNOMED: 39406325 (5) Diabetes mellitus, type II ICD Code: E11.9 - Type 2 diabetes mellitus without complications SNOMED: 73467043 Plan 55-year-old male with history of hypertension, diabetes, kidney stones, among othersPresented to the emergency room withRight flank pain for 1 week. Patient was seen in an ER in [place] and he has a 9 mm ureteral calculus on the right side. He was advised admission but he refused and came here. Work-up in the emergency room including imaging studies patient was found to have 9 mm right distal ureter stone. Patient also was found to have elevated creatinine 1.89.? Acute kidney injury. Urologist was consulted. Patient had cystoscopy today, urologist was unable to place stent. Urologist recommended transfer to Medical Center where interventional radiologist can place a nephrostomy tube, percutaneously and a stent between the kidney and the bladder. Arrangements to transfer the patient to [facility] was accepted. Spoke with the hospitalist Dr. Lyons Who accepted the patient.Patient will be transferred in stable condition. CLEMENTINA TORRES MD Jan 11, 2021 14:24
--- NOTE | 2021-01-11 14:44 | NUR ---
TRANSFER PER R BONY, [facility] AND [facility] ARE BOTH ON DIVERSION, CM CONTACTED [facility] AND THEY ARE AT CAPACITY AND ARE NOT ACCEPTING NEW TRANSFERS, [facility] IS NOT ACCEPTING PATIENTS AT THIS TIME.
--- NOTE | 2021-01-11 15:31 | NUR ---
PRE AUTHORIZATION NOTIFIED BY ALISSA DAVISCHAMBER WALKER THAT PRE AUTHORIZATION WAS OBTAINED FOR PATIENT TO BE TRANSFERRED TO [facility].
--- NOTE | 2021-01-11 16:40 | NUR ---
[facility] IN DAY SURGERY TO TAKE PATIENT TO [facility].
--- NOTE | 2021-01-11 17:03 | NUR ---
REPORT REPORT GIVEN TO EUN VAUGHAN FROM [facility]
--- NOTE | 2021-01-12 00:10 | CNH ---
DATE OF CONSULTATION: 01/11/2021 DICTATOR NAME: Husam Gaspar MD HISTORY OF PRESENT ILLNESS: This is a 55-year-old white male who was admitted from the Emergency Room last night due to severe right flank pain. Noncontrast CT scan revealed a large calculus, 9 mm stone in the right distal ureter causing obstruction. The patient was seen this morning and case was discussed with the patient and I will try to schedule him this morning for cystoscopy, retrograde with possible stent insertion. Laboratory report, the creatinine is slightly elevated and the CBC is normal. Husam Gaspar MD DR: [place]/KIYA/CAMERON TID: [id number] RECEIPT: [id number]
== END 2021-01-11 16:40 | disposition short-term general hospital (02) ==
LOC: ER 15:45 → UNDOADMOB 22:41 → MS 22:41 → SDC 01-11 08:07 → MS 01-11 10:56 → UNDOADMOB 01-11 10:56 → UNDODISOB 01-11 16:40
PROVIDERS: ADMIT Internal Medicine; ATTEND Urology
DX: N20.1 Calculus of ureter (principal); Z20.822 Contact with and (suspected) exposure to COVID-19; N17.9 Acute kidney failure, unspecified; I10 Essential (primary) hypertension; E11.9 Type 2 diabetes mellitus without complications; E78.5 Hyperlipidemia, unspecified; Z87.442 Personal history of urinary calculi; Z79.899 Other long term (current) drug therapy
CPT/HCPCS: 36415 ×2; 52005; 74176; 74420; 80048; 80053; 81001; 82948; 85025 ×2; 85610; 85730; 87426; 96361 ×3; 96374; 99284; A4217 ×2; G0378 ×19; J0330; J0696 ×3; J1100; J1885; J1956; J2001; J2405; J3010; J3490 ×2; J7030 ×5; J7120; J7613; Q9966; 76000

== ENCOUNTER → 2021-02-02 | Day surgery (SDC) | payer MEDICARE ==
[2021-02-01 15:26] LABS: BASOPHIL # 0.1 10^3/uL (0.0-0.1); EOSINOPHIL # 0.2 10^3/uL (0.0-0.2); EOSINOPHIL % 3.1 % (0.0-5.0); LYMPHOCYTES # 1.27 10^3/uL1 (1.0-4.8); LYMPHOCYTES % 24.4 % (24.0-44.0); MONOCYTES # 0.3 10^3/uL (0.3-0.8); MONOCYTES % 5.4 % (5.0-12.0); NEUTROPHIL # 3.4 10^3/uL (1.8-7.7); NEUTROPHILS % 66.1 % (41.0-85.0); PLATELET COUNT 225 10^3/uL (150-400); RED CELL DISTRIBUTION WIDTH 16.1 % (11.5-14.5)
[2021-02-01 15:33] LABS: CALCIUM 9.4 mg/dL (8.4-10.5); CARBON DIOXIDE 30.7 mmol/L (20.0-32)
[2021-02-02] VITALS (11 sets, daily range): BP systolic 111–142; BP diastolic 58–93
[~2021-02-02] VITALS: Ht 152.4 cm; Wt 102.1 kg
[~2021-02-02] MED LIST: ALBU8.5H7 IH; ALLO100T PO; AMLO-170 PO; BUSP5TAB2 PO; CALC1CAP7 PO; DIPRIVAN IV ONE; DOXE10CA PO; EPHEDRINE SULFATE ONE; GABA800T5 PO; HYDR25TA9 PO; LACTATED RINGERS 1,000 ML IV SCH; LACTATED RINGERS 1,000 ML ONE; LEVAQUIN 100 ML IV ONE; LEVO137T4 PO; LISI40TA10 PO; METF500T17 PO; METH-621 PO; NIAC500C8 PO; NS 1000ML 1,000 ML IV SCH; NS 1000ML 1,000 ML ONE; NS 3000ML IRR IR ONE; PARO40TA3 PO; PEPCID IV ONE; POTA20TA14 PO; PROP60CA PO; ROSU40TA PO; SODIUM CHLORIDE IRR BOTTLE IR ONE; SUBLIMAZE ONE; TAMS-14 PO; TORADOL ONE; TRAM50TA PO; VERSED ONE; XYLOCAINE 2% 5ML VIAL ONE; ZOFRAN ONE
[2021-02-02 06:55] LABS: BASOPHIL # 0.1 10^3/uL (0.0-0.1); BASOPHIL % 1.2 % (0.0-0.2); EOSINOPHIL # 0.2 10^3/uL (0.0-0.2); LYMPHOCYTES # 1.09 10^3/uL1 (1.0-4.8); LYMPHOCYTES % 21.7 % (24.0-44.0); MEAN CORP HGB 31.1 pg (26-34); MONOCYTES # 0.3 10^3/uL (0.3-0.8); MONOCYTES % 5.8 % (5.0-12.0); NEUTROPHIL # 3.4 10^3/uL (1.8-7.7); NEUTROPHILS % 68.3 % (41.0-85.0); PLATELET COUNT 199 10^3/uL (150-400); RED CELL DISTRIBUTION WIDTH 15.9 % (11.5-14.5)
[2021-02-02 07:03] LABS: CALCIUM 8.8 mg/dL (8.4-10.5); CARBON DIOXIDE 30.1 mmol/L (20.0-32)
--- NOTE | 2021-02-02 11:13 | OPH ---
DATE OF SURGERY: 02/02/2021 DICTATOR NAME: Husam Gaspar MD PREOPERATIVE DIAGNOSES: Large calculus, right distal ureter with right nephrostomy tube, status post extracorporeal shockwave lithotripsy. FINAL DIAGNOSES: Large calculus, right distal ureter with right nephrostomy tube, status post extracorporeal shockwave lithotripsy. PROCEDURES: Cystoscopy with attempted right retrograde, attempted insertion of right ureteral stent with a right nephrostogram. DESCRIPTION OF PROCEDURE: The patient was brought to the cystoscopy room, was put in supine position on the cystoscopy table. After the patient was given a satisfactory and adequate LMA general anesthesia, the patient was placed in lithotomy position. The genitalia was then prepped and draped aseptically in the usual manner. First, a 23-Polish cystoscope was inserted per urethra up to the bladder. With the use of the right angle lens, the bladder was visualized. There was a lot of congestion and the trigone area was very hemorrhagic and there was some enlargement of prostate, which was also hemorrhagic. I was not able to visualize the trigone area and not able to see the ureteral orifice because of the bleeding and severe blockage from the enlargement of the prostate. Attempted retrograde and putting a right ureteral catheter in the area of the right orifice was not successful including the attempted insertion of guidewire with stent was also attempted, but I was not able to successfully find the right ureteral orifice, so I did a right nephrostogram by injecting a dye to the nephrostomy tube with Omnipaque dye, and it shows that the upper ureter was all right, but there appears to be some partial obstruction in the right distal ureter, so because of the inability for me to insert a stent, I decided to stop the procedure and then the bladder was emptied with fluid and instrument was removed. The patient was then awakened, was transferred to the recovery room in stable condition and discussed this case with the family, with the and the son and will probably refer for further management in [place]. Husam Gaspar MD DR: [place]/KIYA/MIKI [place]: [id number] RECEIPT: [id number] NOÉ
--- NOTE | 2021-02-02 13:43 | DIREP ---
PROCEDURE:XRAY UROGRAPHY RETROGRADE COMPARISON:[facility], CR, XRAY UROGRAPHY RETROGRADE, 01/11/2021, 08:47 AM. INDICATIONS:RT RENAL STONE,199.0 SEC FLUORO, 147.13 mGy, 10cc Omni 240 used,12 images TECHNIQUE:12 spot fluoroscopic images were submitted. FINDINGS:Total fluoroscopy time was 199 seconds. CONCLUSION:Intraoperative fluoroscopy to assist the surgeon. Please see operative report for full details. Dictated by: Jose De Jesus Pro M.D. on 02/02/2021 at 01:41 PM
== END | disposition home or self-care (01) ==
LOC: SDC 06:14
PROVIDERS: ATTEND Urology
DX: N20.1 Calculus of ureter (principal); N40.0 Benign prostatic hyperplasia without lower urinary tract symptoms; I10 Essential (primary) hypertension; E11.9 Type 2 diabetes mellitus without complications; N17.9 Acute kidney failure, unspecified; E03.9 Hypothyroidism, unspecified; M10.9 Gout, unspecified; E78.2 Mixed hyperlipidemia; Z98.890 Other specified postprocedural states; Z98.52 Vasectomy status; Z87.891 Personal history of nicotine dependence; Z90.89 Acquired absence of other organs; Z79.899 Other long term (current) drug therapy
CPT/HCPCS: 36415 ×2; 50430; 52332; 74420; 80048 ×2; 82948 ×2; 85025 ×2; A4217 ×2; C1769; J1885; J1956; J2001; J2250; J2405; J3010; J3490 ×3; J7120; Q9966; 76000; C1758